=== PATIENT | male | born 1955 | race Asian ===

== ENCOUNTER 2016-04-27 10:08 | Day surgery (SDC) | payer BC ==
[2016-04-26 14:02] VITALS: BMI 40.4
[2016-04-27] VITALS (14 sets, daily range): BP systolic 127–167; BP diastolic 75–92; PULSE 70–90; RESP 14–20; Ht 165.1 cm; Wt 70.9 kg
[~2016-04-27] VITALS: Ht 165.1 cm; Wt 70.9 kg
[~2016-04-27 10:08] MED LIST: ASPI-664 PO; ATOR20TA38 PO; DESFLURANE 15 MIN ONE; EPHEDrine SULFATE 50 MG/5 ML SYG ONE; GLU5XL PO; LOSA25TA5 PO; METF1000 PO; METO-448 PO; TAMS-14 PO; TICA90TA PO; TRAM-40 PO
[2016-04-27] MEDS ORDERED: ATOR40TA68 PO (10:38)
[2016-04-27] MEDS ORDERED: GLU5XL PO (10:39)
[2016-04-27] MEDS ORDERED: CEFAZOLIN 2 GM/50 ML (PMX) 50 ML IVPB ONE (12:00)
[2016-04-27] MEDS ORDERED: LACTATED RINGER'S 1,000 ML IV SCH (12:00)
--- NOTE | 2016-04-27 12:51 | HPN ---
Date/Time of Note Date/Time of Note DATE: 04/27/16 TIME: 12:51 Interval H&P Admission Note Pt. seen H&P reviewed: No system changes JESSICA ACEVES MD Apr 27, 2016 12:51
[2016-04-27] MEDS ORDERED: METOCLOPRAMIDE 10 MG INJ ONE (13:04)
[2016-04-27] MEDS ORDERED: PROPOFOL 20 ML ONE (13:04)
[2016-04-27] MEDS ORDERED: MIDAZOLAM 1 MG/ML 2 ML INJ ONE (13:04)
[2016-04-27] MEDS ORDERED: KETOROLAC 30 MG INJ ONE (13:04)
[2016-04-27] MEDS ORDERED: CEFAZOLIN 1 GM INJ ONE (13:18)
[2016-04-27] MEDS ORDERED: FENTAnyl 50 MCG/ML VIAL ONE (13:23)
[2016-04-27] MEDS ORDERED: LIDOCAINE 1% (MPF) 30 ML INJ ONE (13:29)
[2016-04-27] MEDS ORDERED: BUPIVACAINE 0.25%/EPI (SDV) 30 ML INJ ONE (13:29)
[2016-04-27] MEDS ORDERED: MEPERIDINE 25 MG INJ IV PRN (14:00)
[2016-04-27] MEDS ORDERED: HYDROmorphONE (0.2 MG/ML) 10ML SYG IV PRN ×3 (14:00)
[2016-04-27] MEDS ORDERED: METOCLOPRAMIDE 10 MG INJ IV PRN (14:00)
[2016-04-27] MEDS ORDERED: DIPHENHYDRAMINE 50 MG INJ IV PRN (14:00)
[2016-04-27] MEDS ORDERED: ONDANSETRON 4 MG INJ IV PRN (14:00)
[2016-04-27] MEDS ORDERED: EPHEDrine SULFATE 50 MG/5 ML SYG ONE (14:11)
--- NOTE | 2016-04-27 14:13 | OPR ---
Date/Time of Note Date/Time of Note DATE: 04/27/16 TIME: 14:11 Operative Report Procedure Date: Apr 27, 2016 Preoperative Diagnosis Left calf lesion Postoperative Diagnosis Left calf lesion, 5.5x3cm Operation Performed 1. Excision of left calf lesion, 5.5x3cm 2. Creation of flaps for closure 3. Local anesthetic injection, [id number] Surgeon: JESSICA ACEVES MD Anesthesia: other (MAC & Local) Anesthesiologist: DAVID ELIAS MD Estimated Blood Loss: 0 - 10 ml's Specimens Lesion Tubes/Drains None Complications: None Pt Condition Post Procedure: stable Disposition: PACU Indications left calf lesion here for excision. r/b/a fully reviewed as per usual and customary and pt agrees to proceed Procedure Description after anesthesia induction, all pressure points were well padded, time out done. local anesthetic injected and an elliptical incision made to fully remove the lesion. wound irrigated. flaps were created and wound closed with interrupted 2-0 vicryl dermal followed but vertical mattress 2-0 nylon. dressing applied. pt taken to pacu in stable condition. all counts were correct at the end of operation. JESSICA ACEVES MD Apr 27, 2016 14:13
[2016-04-27] MEDS ORDERED: HYDROCODONE/APAP (5/325) TAB PO PRN ×2 (16:00)
== END 2016-04-27 16:00 | disposition home or self-care (01) ==
LOC: SDS 10:08
PROVIDERS: ATTEND Surgery
DX: C44.709 Unspecified malignant neoplasm of skin of left lower limb, including hip (principal); I12.9 Hypertensive chronic kidney disease with stage 1 through stage 4 chronic kidney disease, or unspecified chronic kidney disease; N18.9 Chronic kidney disease, unspecified; E11.9 Type 2 diabetes mellitus without complications; E78.5 Hyperlipidemia, unspecified
CPT/HCPCS: 14020; 82962; 88313; J0690; J1885; J2250; J2765; J3010; J2175; J2405

== ENCOUNTER → 2016-05-27 | Outpatient (CLI) | payer BC ==
[~2016-05-27] MED LIST changes: +ATOR40TA68 PO; -DESFLURANE 15 MIN ONE; -EPHEDrine SULFATE 50 MG/5 ML SYG ONE
== END | disposition home or self-care (01) ==
LOC: C/S 06:26
PROVIDERS: ATTEND Internal Medicine
DX: C76.50 Malignant neoplasm of unspecified lower limb (principal)

== ENCOUNTER 2016-06-24 11:40 | Day surgery (SDC) | payer BC ==
[2016-06-23 15:50] VITALS: BMI 25.1
[2016-06-24] VITALS (12 sets, daily range): BP systolic 117–148; BP diastolic 60–88; PULSE 77–94; RESP 16–30; Ht 167.6 cm; Wt 71.0 kg
[~2016-06-24] VITALS: Ht 167.6 cm; Wt 71.0 kg
[~2016-06-24 11:40] MED LIST changes: -ASPI-664 PO; -ATOR20TA38 PO; +CEFAZOLIN 2 GM/50 ML (PMX) 50 ML IVPB ONE; +DIPHENHYDRAMINE 50 MG INJ IV PRN; +HYDROmorphONE (0.2 MG/ML) 10ML SYG IV PRN; +LACTATED RINGER'S 1,000 ML IV SCH; +LIDOCAINE 2% (SDV) 5 ML INJ ONE; +LORAZEPAM 2 MG INJ IV PRN; +MEPERIDINE 25 MG INJ IV PRN; +PROCHLORPERAZINE 10 MG INJ IV PRN; +SEVOFLURANE 15 MIN ONE; -TAMS-14 PO; -TRAM-40 PO
[2016-06-24] MEDS ORDERED: PROPOFOL 20 ML ONE (13:05)
[2016-06-24] MEDS ORDERED: FENTAnyl 50 MCG/ML VIAL ONE (13:05)
[2016-06-24] MEDS ORDERED: MIDAZOLAM 1 MG/ML 2 ML INJ ONE (13:05)
[2016-06-24 13:25] LABS: ADD SCAN DIFF NO
[2016-06-24 13:28] LABS: BASOPHILS % 0.5 % (0.0-2.0); EOSINOPHILS # 0.1 10^3/ul (0.0-0.5); EOSINOPHILS % 1.9 % (0.0-7.0); HEMATOCRIT 43.3 % (42.0-52.0); HEMOGLOBIN 14.9 g/dl (14.0-18.0); LYMPHOCYTES # 1.2 10^3/ul (0.8-2.9); LYMPHOCYTES % 21.7 % (15.0-51.0); MEAN CORPUSCULAR HEMOGLOBIN 29.2 pg (29.0-33.0); MEAN CORPUSCULAR HGB CONC 34.4 g/dl (32.0-37.0); MEAN CORPUSCULAR VOLUME 84.9 fl (82.0-101.0); MEAN PLATELET VOLUME 8.1 fl (7.4-10.4); MONOCYTE # 0.4 10^3/ul (0.3-0.9); MONOCYTES % 7.3 % (0.0-11.0); NEUTROPHIL # 3.9 10^3/ul (1.6-7.5); NEUTROPHILS % 68.3 % (39.0-77.0); PLATELET COUNT 244 10^3/UL (140-415); RED CELL DISTRIBUTION WIDTH 11.9 % (11.5-14.5); WHITE BLOOD COUNT 5.7 10^3/ul (4.8-10.8)
[2016-06-24 13:31] LABS: INR 0.87; PROTIME 11.8 Sec (12.2-14.2); PT RATIO 0.9
[2016-06-24 13:32] LABS: ALBUMIN 4.6 g/dl (3.3-4.9)
--- NOTE | 2016-06-24 13:33 | HPN ---
Date/Time of Note Date/Time of Note DATE: 06/24/16 TIME: 13:33 Interval H&P Admission Note Pt. seen H&P reviewed: No system changes JESSICA ACEVES MD June 24, 2016 13:33
[2016-06-24 13:35] LABS: ALBUMIN/GLOBULIN RATIO 1.48; BILIRUBIN,INDIRECT 0.6 mg/dl (0-1.1); BILIRUBIN,TOTAL 0.6 mg/dl (0.2-1.3); TOTAL PROTEIN 7.7 g/dl (6.1-8.1)
[2016-06-24 13:44] LABS: CALCIUM 9.6 mg/dl (8.4-10.2); CREATININE 1.03 mg/dl (0.61-1.24); POTASSIUM 3.9 mmol/L (3.5-5.1)
[2016-06-24 14:07] LABS: ADD UMIC NO; URINE BILIRUBIN (Dip) NEGATIVE (NEGATIVE); URINE BLOOD (Dip) NEGATIVE (NEGATIVE); URINE COLOR LT. YELLOW (YELLOW); URINE GLUCOSE (Dip) NEGATIVE (NEGATIVE); URINE KETONES (Dip) NEGATIVE (NEGATIVE); URINE LEUKOCYTE ESTERASE (Dip) NEGATIVE (NEGATIVE); URINE NITRITE (Dip) NEGATIVE (NEGATIVE); URINE TOTAL PROTEIN (Dip) NEGATIVE (NEGATIVE); URINE UROBILINOGEN (Dip) 0.2 E.U./dL (0.1-1.0)
[2016-06-24] MEDS ORDERED: CEFAZOLIN 1 GM INJ ONE (14:07)
[2016-06-24] MEDS ORDERED: DEXAMETHASONE 4 MG/ML 1 ML INJ ONE (14:26)
[2016-06-24] MEDS ORDERED: ONDANSETRON 4 MG INJ ONE (14:26)
[2016-06-24] MEDS ORDERED: BUPIVACAINE 0.5%/EPI (SDV) 30 ML INJ ONE (14:53)
[2016-06-24] MEDS ORDERED: LIDOCAINE 1% (STERILE-PAK) 30 ML INJ ONE (14:53)
[2016-06-24] MEDS ORDERED: morphine 10 MG INJ IM PRN (15:30)
[2016-06-24] MEDS ORDERED: ONDANSETRON 4 MG INJ IV PRN (15:30)
[2016-06-24] MEDS ORDERED: LACTATED RINGER'S 1,000 ML IV SCH (15:30)
[2016-06-24] MEDS ORDERED: OXYCODONE/ACETAMINOPHEN (5/325) TAB PO PRN ×2 (15:30)
--- NOTE | 2016-06-24 15:41 | OPR ---
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 Reexcision of left calf adenocarcinoma, 8 x 4 cm 2. Fascio-cutaneous bilateral flaps for primary closure of the defect 3. Local anesthetic injection, [id number] Surgeon: JESSICA ACEVES MD Anesthesia: general (Plus local), other Anesthesiologist: MARTY GRADY DO Estimated Blood Loss: 0 - 10 ml's Specimens Left calf lesion short superior long lateral/posterior. Frozen section was negative for peripheral margins however will need to await final path. Tubes/Drains None Complications: None Pt Condition Post Procedure: stable Disposition: PACU Indications 61-year-old male with history of long-standing abnormal questionable cyst/ infection on his left calf that was excised here and was found to be adenocarcinoma assumed to be primary sweat gland. His peripheral margins were positive and pathology was close to the deep margin. He is here for reexcision. Risks, benefits, alternatives were fully explained to patient including chronic pain, wound formation, dehiscence, bleeding, infection, abscess, hematoma, seroma, difficulty with ambulation, damage to neurovascular bundle, need for further surgeries, heart attack, stroke, PE, DVT, pneumonia, organ failures, or even . Patient fully understands and elects to proceed with surgery. Procedure Description Patient was brought in, placed supine on the operating table, and after induction of anesthesia, he was prepped and draped in usual sterile fashion and timeout was performed. All pressure points were padded. Preoperative antibiotics administered. Elliptical incision was made in the horizontal plane as previously and extended down to the fascia and this time included excision of the fascia to the muscle belly. Complete hemostasis was obtained. Pathology was sent for frozen section and peripheral margins were deemed negative at this time. However final full results will be available in several days. To be able to close this primarily fascio-cutaneous flaps were created bilaterally (superiorly and inferiorly) to allow approximation of the edges without tension. Wound was thoroughly irrigated with water, sterile. There was complete hemostasis. Incision was closed in multiple layers with interrupted fascial closure with 2- 0 Vicryl suture followed by 2-0 Vicryl subcutaneous closure followed by vertical mattress 2-0 nylon closure. Local anesthetic of half percent Marcaine and 1% lidocaine with epi were injected circumferentially. Dressing was applied. Patient was recovered and taken back to PACU in stable condition. All counts were correct at the end of the operation 2. Copies To: CC: PORTILLO PERALTA M.D., SAMUEL MD June 24, 2016 15:41
== END 2016-06-24 17:45 | disposition home or self-care (01) ==
LOC: SDS 11:40
PROVIDERS: ATTEND Surgery
DX: L90.5 Scar conditions and fibrosis of skin (principal); Z85.89 Personal history of malignant neoplasm of other organs and systems
CPT/HCPCS: 11406; 15738; 80053; 80076; 81003; 82962; 85025; 85610; 85730; J0690; J1100; J2175; J2250; J2405; J3010

== ENCOUNTER → 2017-05-03 | Outpatient (CLI) | END | disposition home or self-care (01) ==

== ENCOUNTER 2017-11-22 01:05 | Emergency (ER) | END 2017-11-22 06:19 | disposition home or self-care (01) ==

== ENCOUNTER → 2018-06-25 | Outpatient (CLI) | payer BC ==
[~2018-06-25] MED LIST changes: +ASPI-817 PO; -CEFAZOLIN 2 GM/50 ML (PMX) 50 ML IVPB ONE; -DIPHENHYDRAMINE 50 MG INJ IV PRN; +DOCU-144 PO; -GLU5XL PO; -HYDROmorphONE (0.2 MG/ML) 10ML SYG IV PRN; -LACTATED RINGER'S 1,000 ML IV SCH; -LIDOCAINE 2% (SDV) 5 ML INJ ONE; +LINA5TAB PO; -LORAZEPAM 2 MG INJ IV PRN; +LOSA25TA12 PO; -LOSA25TA5 PO; -MEPERIDINE 25 MG INJ IV PRN; -METF1000 PO; +METF500T24 PO; +ONDA4TAB14 PO; -PROCHLORPERAZINE 10 MG INJ IV PRN; +REPA1TAB5 PO; -SEVOFLURANE 15 MIN ONE; +TAMS0.4C2 PO
--- NOTE | 2018-06-26 15:15 | RADRPT ---
Echocardiogram Report Patient Name: JULIA MOJICAPatient ID: [id number] : 1955 (63y 2m)Study Date: 06/25/2018 10:26:03 AM Gender: Codycession #: [id number] Tech: LE Location: [facility] Ref.Physician: ANGEL DOMINGUEZ Height(Cm): BSA: Weight(Kg): Quality: GoodOrder Physician: ANGEL DOMINGUEZ Account #: Procedures: Echocardiographic Report: Transthoracic echocardiogram with complete 2D, M-Mode, and doppler examination. Indications: Coronary Artery Disease. Measurements: 2D/M Mode Doppler Measurement Value Normal Range Measurement Value Normal Range LVIDd 2D 4.6 [ 4.2 - 5.8 ] cm AV Mean Andrea 1.0 [ 70.0 - 90.0 ] cm/sec LVIDs 2D 3.1 [ 2.5 - 4.0 ] cm AV Mean PG 5.0 [ 2.0 - 4.0 ] mmHg LVPWd 2D 1.1 [ 0.6 - 1.0 ] cm AV Peak Andrea 1.4 [ 100.0 - 170.0 ] cm/sec IVSd 2D 1.0 [ 0.6 - 1.0 ] cm AV Peak PG 8.0 [ 2.0 - 9.0 ] mmHg EDV 2D 95.4 [ 62.0 - 150.0 ] ml AV VTI 26.1 cm ESV 2D 38.8 [ 21.0 - 61.0 ] ml AI Peak PG 57.0 mmHg EF 2D 59.3 [ 52.0 - 72.0 ] percent AI Peak Andrea 3.8 cm/sec LVOT Diam 2.1 [ 2.3 - 2.9 ] cm AI PHT 331.0 msec LVOT Peak Andrea 0.9 [ 70.0 - 110.0 ] cm/sec LVOT Peak PG 3.0 [ 2.0 - 6.0 ] mmHg MV E Peak Andrea 0.7 [ 60.0 - 130.0 ] cm/sec MV A Peak Andrea 1.1 [ 100.0 - 120.0 ] cm/sec MV E/A 0.6 [ 0.8 - 1.5 ] ratio MV Decel Time 155 [ 104 - 258 ] msec Lat E` Andrea 0.1 [ 10.0 - 15.0 ] cm/sec Lateral E/E` 9.3 [ 1.0 - 2.0 ] ratio Med E` Andrea 0.1 cm/sec MV E/A 0.6 [ 0.8 - 1.5 ] ratio PV Peak Andrea 0.8 [ 40.0 - 80.0 ] cm/sec PV Peak PG 3.0 mmHg Findings: Left Ventricle: Normal left ventricular systolic function. Normal left ventricular cavity size. Normal left ventricular wall thickness. Ejection fraction is visually estimated at 60 %. Tissue Doppler/Mitral Doppler indices are consistent with impaired relaxation (Stage I diastolic dysfunction). Right Ventricle: Normal right ventricular size. Normal right ventricular systolic function. Left Atrium: There is mild enlargement of left atrium. Right Atrium: The right atrium is normal in size. Mitral Valve: Normal appearance of the mitral valve. Mild mitral valve regurgitation. Aortic Valve: Aortic sclerosis without significant stenosis. Mild aortic valve regurgitation. Tricuspid Valve: Normal appearance of the tricuspid valve. Unable to obtain RVSP due to minimal presence of tricuspid regurgitation. There is trace tricuspid regurgitation. Pulmonic Valve: Normal pulmonic valve appearance. Pericardium: Normal pericardium with no significant pericardial effusion. Aorta: Normal aortic root. IVC: Normal size and normal respiratory collapse consistent with normal right atrial pressure. Conclusions: Normal left ventricular systolic function. Normal left ventricular cavity size. Normal left ventricular wall thickness. Ejection fraction is visually estimated at 60 %. Tissue Doppler/Mitral Doppler indices are consistent with impaired relaxation (Stage I diastolic dysfunction). Aortic sclerosis without significant stenosis. Mild aortic valve regurgitation. Unable to obtain RVSP due to minimal presence of tricuspid regurgitation. Normal size and normal respiratory collapse consistent with normal right atrial pressure. Electronically Signed By: Nba Jara 2018-06-26 15:15:28 PDT
== END | disposition home or self-care (01) ==
LOC: EKG 09:43
PROVIDERS: ATTEND Internal Medicine Cardiovascular Disease
DX: I25.10 Atherosclerotic heart disease of native coronary artery without angina pectoris (principal); I10 Essential (primary) hypertension
CPT/HCPCS: 93306